=== PATIENT | female | born 1960 | race American Indian/Alaskan Native ===

== ENCOUNTER 2021-05-05 16:50 | Emergency (ER) | payer OTHER ==
[2021-05-05] MEDS ORDERED: Ondansetron 4 MG/2 ML SDV IVPUSH ONE (17:25)
[2021-05-05] MEDS ORDERED: Sodium Chloride 0.9% 10 ML Syringe FLUSH PRN (17:25)
[2021-05-05] MEDS: Sodium Chloride 0.9% 1,000 ML IV SCH ×2 (17:35→19:51)
[2021-05-05] MEDS ORDERED: Potassium Chloride 20 MEQ Tab.ER PO ONE (19:21)
--- NOTE | 2021-05-05 19:26 | EDM.PDOC ---
ED HPI GENERAL MEDICAL PROBLEM - General Chief Complaint: Exposure to Heat or Cold Stated Complaint: [facility] Time Seen by Provider: 05/05/21 17:10 Source of Information: Reports: Patient, EMS, RN Notes Reviewed - History of Present Illness INITIAL COMMENTS - FREE TEXT/NARRATIVE: 60 yr old female has been brought in by EMS for near syncope. She was out on her porch, started to feel weak, dizzy and felt to weak or dizzy to stand and get back into the house. Now after arrival to ED she feels better. No chest pain or difficulty breathing. No fever or chills. States she felt fine earlier to day but may have "overworked doing a bunch of cleaning yesterday". No vomiting or diarrhea. Concerned she may have a UTI because this is how she felt the last time she had a UTI. - Related Data Allergies Allergy/AdvReac Type Severity Reaction Status Date / Time No Known Allergies Allergy Verified 05/05/21 19:50 Home Meds: Home Meds Aspirin 81 mg PO ASDIRECTED 05/05/21 [History] Potassium Chloride 10 meq PO BID #20 capsule.er 05/05/21 [Rx] Past Medical History Musculoskeletal History: Reports: Arthritis Endocrine/Metabolic History: Reports: Diabetes, Type II - Infectious Disease History Infectious Disease History: Reports: Chicken Pox, Measles, Mumps Social & Family History - Family History Family Medical History: No Pertinent Family History - Tobacco Use Tobacco Use Status *Q: Former Tobacco User Used Tobacco, but Quit: Yes Month/Year Tobacco Last Used: 02/2020 - Caffeine Use Caffeine Use: Reports: None - Recreational Drug Use Recreational Drug Use: Yes Drug Use in Last 12 Months: No ED ROS GENERAL - Review of Systems Review Of Systems: See Below Constitutional: Denies: Fever, Chills HEENT: Reports: Other (mouth is dry) Respiratory: Denies: Shortness of Breath, Cough Cardiovascular: Denies: Chest Pain GI/Abdominal: Denies: Abdominal Pain, Diarrhea, Nausea, Vomiting Musculoskeletal: Denies: Shoulder Pain, Arm Pain Skin: Reports: No Symptoms Neurological: Reports: Dizziness, Weakness (generalized). Denies: Trouble Speaking ED EXAM, GENERAL - Physical Exam Exam: See Below General Appearance: Alert, Moderate Distress Ears: Normal External Exam Nose: Normal Inspection Throat/Mouth: Other (mouth is dry) Head: Atraumatic Neck: Supple Respiratory/Chest: No Respiratory Distress, Lungs Clear, Normal Breath Sounds Cardiovascular: Regular Rate, Rhythm GI/Abdominal: Soft, Non-Tender Extremities: Normal Inspection, Normal Range of Motion Neurological: Alert, Oriented, No Motor/Sensory Deficits Skin Exam: Warm, Dry, Normal Color Course - Vital Signs Last Recorded V/S: Last Vital Signs Temp 97.1 F 05/05/21 17:00 Pulse 83 05/05/21 17:00 Resp 18 05/05/21 17:00 BP 136/58 L 05/05/21 17:00 Pulse Ox 99 05/05/21 17:00 - Orders/Labs/Meds Orders: Active Orders 24 hr Category Date Time Status Peripheral IV Care [RC] . DIRECTED Care 05/05/21 17:25 Active Sodium Chloride 0.9% [Normal Saline] 1,000 ml Med 05/05/21 17:30 Active IV ONETIME Sodium Chloride 0.9% [Normal Saline] 1,000 ml Med 05/05/21 19:30 Active IV ONETIME Sodium Chloride 0.9% [Saline Flush] Med 05/05/21 17:25 Active 10 ml FLUSH ASDIRECTED PRN Peripheral IV Insertion Adult [OM.PC] Stat Oth 05/05/21 17:25 Ordered Medication Orders Sodium Chloride (Normal Saline) 1,000 mls @ 999 mls/hr IV ONETIME [facility] Last Infusion: 05/05/21 18:36 Dose: 999 mls/hr Documented by: Admin: 05/05/21 17:35 Dose: 999 mls/hr Documented by: PIERCE Sodium Chloride (Normal Saline) 1,000 mls @ 999 mls/hr IV ONETIME KRISTIN Last Admin: 05/05/21 19:52 Dose: 999 mls/hr Documented by: HILARIO Sodium Chloride (Sodium Chloride 0.9% 10 Ml Syringe) 10 ml FLUSH ASDIRECTED PRN PRN Reason: Keep Vein Open Last Admin: 05/05/21 17:36 Dose: 10 ml Documented by: PIERCE Labs: Laboratory Tests 05/05/21 05/05/21 05/05/21 Range/Units 17:00 17:00 17:00 WBC 8.27 (3.98-10.04) K/mm3 RBC 4.32 (3.98-5.22) M/mm3 Hgb 13.3 (11.2-15.7) gm/dl Hct 38.4 (34.1-44.9) % MCV 88.9 (79.4-94.8) fl MCH 30.8 (25.6-32.2) pg MCHC 34.6 (32.2-35.5) g/dl RDW Std Deviation 42.5 (36.4-46.3) fL Plt Count 223 (182-369) K/mm3 MPV 11.8 (9.4-12.3) fl Neut % (Auto) 77.8 H (34.0-71.1) % Lymph % (Auto) 15.4 L (19.3-51.7) % [place] % (Auto) 4.1 L (4.7-12.5) % Eos % (Auto) 2.2 (0.7-5.8) Baso % (Auto) 0.4 (0.1-1.2) % Neut # (Auto) 6.44 H (1.56-6.13) K/mm3 Lymph # (Auto) 1.27 (1.18-3.74) K/mm3 [place] # (Auto) 0.34 (0.24-0.36) K/mm3 Eos # (Auto) 0.18 (0.04-0.36) K/mm3 Baso # (Auto) 0.03 (0.01-0.08) K/mm3 Sodium 145 (136-145) mEq/L Potassium 3.0 L (3.5-5.1) mEq/L Chloride 106 (98-107) mEq/L Carbon Dioxide 24 (21-32) mEq/L Anion Gap 18.0 H (5-15) BUN 14 (7-18) mg/dL Creatinine 0.7 (0.55-1.02) mg/dL Est Cr Clr Drug Dosing 63.64 mL/min Estimated GFR (MDRD) > 60 (>60) mL/min BUN/Creatinine Ratio 20.0 H (14-18) Glucose 174 H (70-99) mg/dL POC Glucose (70-99) mg/dL Calcium 9.1 (8.5-10.1) mg/dL Total Bilirubin 0.5 (0.2-1.0) mg/dL AST 23 (15-37) U/L ALT 26 (14-59) U/L Alkaline Phosphatase 74 (46-116) U/L C-Reactive Protein <0.2 (<1.0) mg/dL Total Protein 7.5 (6.4-8.2) g/dl Albumin 4.2 (3.4-5.0) g/dl Globulin 3.3 gm/dL Albumin/Globulin Ratio 1.3 (1-2) Urine Color (Yellow) Urine Appearance (Clear) Urine pH (5.0-8.0) Ur Specific [place] (1.005-1.030) Urine Protein (Negative) Urine Glucose (UA) (Negative) Urine Ketones (Negative) Urine Occult Blood (Negative) Urine Nitrite (Negative) Urine Bilirubin (Negative) Urine Urobilinogen (0.2-1.0) Ur Leukocyte Esterase (Negative) Urine RBC (0-5) /hpf Urine WBC (0-5) /hpf Ur Squamous Epith Cells (0-5) /hpf Urine Bacteria (FEW) /hpf Urine Mucus (FEW) /hpf 05/05/21 05/05/21 Range/Units 17:01 18:05 WBC (3.98-10.04) K/mm3 RBC (3.98-5.22) M/mm3 Hgb (11.2-15.7) gm/dl Hct (34.1-44.9) % MCV (79.4-94.8) fl MCH (25.6-32.2) pg MCHC (32.2-35.5) g/dl RDW Std Deviation (36.4-46.3) fL Plt Count (182-369) K/mm3 MPV (9.4-12.3) fl Neut % (Auto) (34.0-71.1) % Lymph % (Auto) (19.3-51.7) % [place] % (Auto) (4.7-12.5) % Eos % (Auto) (0.7-5.8) Baso % (Auto) (0.1-1.2) % Neut # (Auto) (1.56-6.13) K/mm3 Lymph # (Auto) (1.18-3.74) K/mm3 [place] # (Auto) (0.24-0.36) K/mm3 Eos # (Auto) (0.04-0.36) K/mm3 Baso # (Auto) (0.01-0.08) K/mm3 Sodium (136-145) mEq/L Potassium (3.5-5.1) mEq/L Chloride (98-107) mEq/L Carbon Dioxide (21-32) mEq/L Anion Gap (5-15) BUN (7-18) mg/dL Creatinine (0.55-1.02) mg/dL Est Cr Clr Drug Dosing mL/min Estimated GFR (MDRD) (>60) mL/min BUN/Creatinine Ratio (14-18) Glucose (70-99) mg/dL POC Glucose 155 H (70-99) mg/dL Calcium (8.5-10.1) mg/dL Total Bilirubin (0.2-1.0) mg/dL AST (15-37) U/L ALT (14-59) U/L Alkaline Phosphatase (46-116) U/L C-Reactive Protein (<1.0) mg/dL Total Protein (6.4-8.2) g/dl Albumin (3.4-5.0) g/dl Globulin gm/dL Albumin/Globulin Ratio (1-2) Urine Color Yellow (Yellow) Urine Appearance Clear (Clear) Urine pH 6.0 (5.0-8.0) Ur Specific [place] > or = 1.030 (1.005-1.030) Urine Protein 1+ H (Negative) Urine Glucose (UA) Negative (Negative) Urine Ketones 4+ H (Negative) Urine Occult Blood Negative (Negative) Urine Nitrite Negative (Negative) Urine Bilirubin 1+ H (Negative) Urine Urobilinogen 0.2 (0.2-1.0) Ur Leukocyte Esterase Negative (Negative) Urine RBC 0-5 (0-5) /hpf Urine WBC 0-5 (0-5) /hpf Ur Squamous Epith Cells 0-5 (0-5) /hpf Urine Bacteria Few (FEW) /hpf Urine Mucus Few (FEW) /hpf Meds: Medications Generic Name Dose Route Start Last Admin Trade Name Freq PRN Reason Stop Dose Admin Sodium Chloride 1,000 mls @ 999 mls/hr 05/05/21 17:30 05/05/21 18:36 Normal Saline IV Infused ONETIME KRISTIN Infusion Sodium Chloride 1,000 mls @ 999 mls/hr 05/05/21 19:30 05/05/21 19:52 Normal Saline IV 999 mls/hr ONETIME KRISTIN Administration Sodium Chloride 10 ml 05/05/21 17:25 05/05/21 17:36 Sodium Chloride 0.9% 10 Ml Syringe FLUSH 10 ml ASDIRECTED PRN Administration Keep Vein Open Discontinued Medications Generic Name Dose Route Start Last Admin Trade Name Freq PRN Reason Stop Dose Admin Ondansetron HCl 4 mg 05/05/21 17:25 05/05/21 17:35 Ondansetron 4 Mg/2 Ml Sdv IVPUSH 05/05/21 17:26 4 mg ONETIME ONE Administration Potassium Chloride 20 meq 05/05/21 19:21 05/05/21 19:51 Potassium Chloride 20 Meq Tab.Er PO 05/05/21 19:22 20 meq ONETIME ONE Administration - Re-Assessments/Exams Free Text/Narrative Re-Assessment/Exam: 05/05/21 20:04 Labs show mild dehydration, K+ of 3.0. Have given 1.5 liter NS, have given KCL 20 meq oral, UA is normal, other labs relatively normal, feeling better at time of discharge. Departure - Departure Time of Disposition: 19:23 Disposition: Home, Self-Care 01 Condition: Fair Clinical Impression: Syncope, near, Dehydration, Hypokalemia - Discharge Information Prescriptions: Potassium Chloride 10 meq PO BID #20 capsule.er Instructions: Hypokalemia, Dehydration, Adult Referrals: PCP,None [Primary Care Provider] - Forms: ED Department Discharge Additional Instructions: Rest. Avoid heat exposure this next few days. Drink plenty of water to maintain hydrations. Eat regular meals and snacks. Potassium 10 meq twice daily for 10 days or until gone. Follow up [facility] for recheck in about 4 to 5 days, call for appt. Friday AM. Return to ED as needed if symptoms worsening in any way. Sepsis Event Note (ED) - Evaluation Sepsis Screening Result: No Definite Risk - Focused Exam Vital Signs: Vital Signs Temp Pulse Resp BP Pulse Ox 05/05/21 17:00 97.1 F 83 18 136/58 L 99 - My Orders Last 24 Hours: My Active Orders 05/05/21 17:25 Peripheral IV Care [RC] . DIRECTED Sodium Chloride 0.9% [Saline Flush] 10 ml FLUSH ASDIRECTED PRN Peripheral IV Insertion Adult [OM.PC] Stat 05/05/21 17:30 Sodium Chloride 0.9% [Normal Saline] 1,000 ml IV ONETIME 05/05/21 19:30 Sodium Chloride 0.9% [Normal Saline] 1,000 ml IV ONETIME - Assessment/Plan Last 24 Hours: My Active Orders 05/05/21 17:25 Peripheral IV Care [RC] . DIRECTED Sodium Chloride 0.9% [Saline Flush] 10 ml FLUSH ASDIRECTED PRN Peripheral IV Insertion Adult [OM.PC] Stat 05/05/21 17:30 Sodium Chloride 0.9% [Normal Saline] 1,000 ml IV ONETIME 05/05/21 19:30 Sodium Chloride 0.9% [Normal Saline] 1,000 ml IV ONETIME
[2021-05-05] MEDS ORDERED: Sodium Chloride 0.9% 1,000 ML IV SCH (19:30)
== END 2021-05-05 20:28 | disposition home or self-care (01) ==
LOC: JD.ED 16:50
DX: E86.0 Dehydration (principal); R55 Syncope and collapse; E87.6 Hypokalemia; E11.9 Type 2 diabetes mellitus without complications; M19.90 Unspecified osteoarthritis, unspecified site; Z87.891 Personal history of nicotine dependence
CPT/HCPCS: 36415; 80053; 81001; 82947; 85025; 86140; 96374; 99284; A9270; J2405; J7030; 99283